=== PATIENT | male | born 1955 | race African-American/Black ===

== ENCOUNTER 2017-11-15 00:28 | Emergency (ER) | payer SELFPAY ==
[~2017-11-15] VITALS: Ht 180.3 cm; Wt 91.0 kg
[2017-11-15] MEDS ORDERED: TETANUS, DIPHTHERIA, PERTUSSIS VAC/PF 0.5ML (>7YR OLD) IM ONE (01:00)
[2017-11-15] MEDS ORDERED: IOHEXOL-350 100 ML BOTTLE ONE (03:27)
[2017-11-15 03:44] VITALS: BP 139/72
== END 2017-11-15 03:45 | disposition home or self-care (01) ==
LOC: ER 00:28
DX: S81.811A Laceration without foreign body, right lower leg, initial encounter (principal); X95.9XXA Assault by unspecified firearm discharge, initial encounter; Y93.89 Activity, other specified; Y92.098 Other place in other non-institutional residence as the place of occurrence of the external cause; R03.0 Elevated blood-pressure reading, without diagnosis of hypertension; F17.210 Nicotine dependence, cigarettes, uncomplicated; Z23 Encounter for immunization
CPT/HCPCS: 73590; 75635; 90471; 90715; 99284; Q9967; Z7610